=== PATIENT | female | born 1995 | race Two or more races ===

== ENCOUNTER 2023-08-02 13:30 | Emergency (ER) | payer BC, OTHER ==
[~2023-08-02] VITALS: Ht 154.9 cm; Wt 64.5 kg
[2023-08-02 14:09] VITALS: BP 131/80; PULSE 107; RESP 16; TEMP 98.7; O2SAT 100
== END 2023-08-02 14:32 | disposition left against medical advice (07) ==
LOC: ER 13:30
DX: S61.012A Laceration without foreign body of left thumb without damage to nail, initial encounter (principal); Z53.21 Procedure and treatment not carried out due to patient leaving prior to being seen by health care provider; W26.0XXA Contact with knife, initial encounter; Y93.89 Activity, other specified; Y92.89 Other specified places as the place of occurrence of the external cause; Y99.8 Other external cause status